=== PATIENT | female | born 1985 | race Caucasian/White ===

== ENCOUNTER 2021-12-27 20:46 | Emergency (ER) | payer OTHER, SELFPAY ==
[2021-12-27 21:00] VITALS: BP 147/75; PULSE 92; RESP 16; TEMP 36; O2SAT 99; BMI 44.5
[2021-12-27 22:18] VITALS: PULSE 79; O2SAT 100
[2021-12-27 22:19] VITALS: BP 127/70; PULSE 79; O2SAT 100
[2021-12-27 22:30] VITALS: PULSE 75; O2SAT 100
[2021-12-27 22:32] LABS: Add Manual Diff / Slide Review NO; Basophils Absolute Auto 100 /uL (0-100); Basophils Percent Auto 0.6 % (0-2); Eosinophils Absolute Auto 100 /uL (0-450); Eosinophils Percent Auto 1.7 % (2-4); Hematocrit 38.4 % (36-46); Hemoglobin 13.5 g/dL (12.0-16.0); Lymphocytes Absolute Auto 3400 /uL (1100-4500); Lymphocytes Percent Auto 39.4 % (25-40); Mean Corpuscular HGB Conc 35.2 % (30-36); Mean Corpuscular Hemoglobin 31.2 PG (26-34); Mean Corpuscular Volume 88.7 fL (80-100); Monocytes Absolute Auto 400 /uL (0-900); Monocytes Percent Auto 5.1 % (3-14); Neutrophils Absolute Auto 4600 /uL (1500-7000); Neutrophils Percent Auto 53.2 % (50-75); Platelet Count 217 X10^3/uL (150-400); Red Blood Cell Count 4.33 X10^6/uL (4.0-5.2); Red Cell Distribution Width 12.5 % (11.6-14.8); White Blood Cell Count 8.7 X10^3/uL (4.5-11.0)
--- NOTE | 2021-12-27 22:33 | PC.NURSE ---
pt states she just moved here from [place], her is on deployment. Pt has had history, states about 5 years long. she has on and off diarrhea and nausea. takes home medications (reglan and compazine regularly for nausea), diarrhea off and on and dizziness too/ she is here today because she saw a blood clot in the toilet and was concerned she has a GI bleed and also states she has had a huge increase in pain lately. states nothing makes her feel better and eating definitely makes it feel worse.
[2021-12-27 22:39] LABS: INR 0.9 (0.9-1.3); Prothrombin Time 10.8 SECONDS (10.1-12.7)
[2021-12-27 22:42] LABS: PTT Partial Thromboplastin Tim 33 SECONDS (26-36)
[2021-12-27 22:44] LABS: Alanine Aminotransferase 27 IU/L (<35); Albumin 4.2 g/dL (3.5-5.0); Albumin Globulin Ratio 1.4 (1.0-2.8); Alkaline Phosphatase 60 U/L (38-126); Aspartate Aminotransferase 20 IU/L (14-36); BUN Creatinine Ratio 19.3 (6-22); Bilirubin Total 0.5 mg/dL (0.2-1.3); Blood Urea Nitrogen 16 mg/dL (7-17); Calcium 8.9 mg/dL (8.4-10.2); Carbon Dioxide 27 mmol/L (22-32); Chloride 103 mmol/L (98-107); Estimated Glomerular Filt Rate > 60 mL/min (>60); Glucose 99 mg/dL (70-100); HEMOLYSIS < 15 (0-50); Sodium 140 mmol/L (137-145); Total Protein 7.2 g/dL (6.3-8.2)
--- NOTE | 2021-12-27 22:46 | ED_ITS ---
HPI - GI Bleed General Chief complaint: GI Bleed Stated complaint: diarrhea, painful urine Time Seen by Provider: 12/27/21 21:43 History of Present Illness HPI Narrative: 36-year-old female nonsmoker with prior GI history presents with her 2 children and a chief complaint of episodes of diarrhea off and on for the past few weeks. She feels a bit fatigued and under the weather but states that she has a long history of GI symptoms and was not concerned until she passed a blood clot in a bowel movement earlier today. She states there is intense pain with the passage of stool that improved when she was done. Additionally she states that she is been having burning, frequency and urgency over the past day or 2 as well. She denies any chest pain, shortness of breath or cough. She denies any ongoing abdominal pain. She takes no blood thinners. She denies recent antibiotics, in ternational travel or exposure to bad food or ill persons Related Data Allergies Allergy/AdvReac Type Severity Reaction Status Date / Time acetaminophen [From Percocet] Allergy Verified 12/27/21 21:04 diazepam [From Valium] Allergy Verified 12/27/21 21:04 morphine Allergy Verified 12/27/21 21:04 oxycodone Allergy Verified 12/27/21 21:04 Review of Systems Review of Systems Narrative: GENERAL: See HPI HEENT: Denies sinus pain, ear pain, sore throat, difficulty swallowing, dizziness. RESPIRATORY: Denies dyspnea, cough, wheezing, hemoptysis, sputum. CARDIOVASCULAR: Denies chest pain, palpitations, orthopnea, edema, GASTROINTESTINAL: See HPI : Denies dysuria, frequency, incontinence, hematuria, urinary retention. MUSCULOSKELETAL: denies weakness, joint pain, or bony pain SKIN: Denies rash, skin lesions, or other NEUROLOGIC: Denies weakness, headache, numbness, change in speech, confusion, seizures, incoordination. PSYCHIATRIC: No concerning psychosocial issues. 12 point review of systems is negative except for those stated above Exam Narrative Exam Narrative: GENERAL: 36 [] year old patient appears stated age. Well-developed patient, in mild distress. HEAD: Atraumatic. Normocephalic. EYES: Pupils equal round and reactive. Extraocular motions intact. No scleral icterus. No injection or drainage. ENT: Nose without bleeding, purulent drainage. Throat without erythema, tonsillar hypertrophy or exudate. Airway patent. NECK: Trachea midline. Non tender CARDIOVASCULAR: Regular rate and rhythm without murmurs, gallops, or rubs. RESPIRATORY: Clear to auscultation. Breath sounds equal bilaterally. No wheezes, rales, or rhonchi. GASTROINTESTINAL: Abdomen soft, non-tender, nondistended. Bowel sounds present in all 4 quadrants EXTREMITIES: No edema or joint tenderness. BACK: Nontender without deformity or crepitance. No flank tenderness. NEURO: AOx3. SKIN: No rash or erythema of visible areas Initial Vital Signs Initial Vital Signs: Vital Signs Temperature 96.8 F L 12/27/21 21:00 Pulse Rate 92 H 12/27/21 21:00 Respiratory Rate 16 12/27/21 21:00 Blood Pressure 147/75 H 12/27/21 21:00 Pulse Oximetry 99 12/27/21 21:00 Oxygen Delivery Method 12/27/21 21:00 Course Orders Ordered: ED Orders 12/27/21 21:42 GI Panel (Film Array) Stat 12/27/21 22:18 Complete Blood Count AUTO DIFF Stat Comprehensive Metabolic Panel Stat Partial Thromboplastin Time Stat Prothrombin Time INR Stat 12/28/21 00:15 Urine Culture Stat Urine Microscopic Stat Discontinued Medications Sodium Chloride (Normal Saline 0.9%) 1,000 mls @ 1,000 mls/hr IV BOLUS ONE Stop: 12/27/21 23:46 Last Infusion: 12/28/21 00:00 Dose: 0 mls/hr Documented By: Admin: 12/27/21 23:15 Dose: 1,000 mls/hr Documented By: NR Vital Signs Vital signs: Vital Signs - 8 hr 12/27/21 22:18 12/27/21 22:19 12/27/21 22:19 Pulse Rate 79 79 Blood Pressure 127/70 Pulse Oximetry 100 100 12/27/21 22:30 12/27/21 23:00 12/27/21 23:00 Pulse Rate 75 76 Blood Pressure 122/68 Pulse Oximetry 100 100 12/27/21 23:30 12/27/21 23:30 12/28/21 00:00 Pulse Rate 86 Blood Pressure 115/60 113/70 Pulse Oximetry 100 12/28/21 00:00 Pulse Rate 74 Blood Pressure Pulse Oximetry 100 MDM - GI Bleed Lab Data Result diagrams: 12/27/21 22:18 12/27/21 22:18 Labs: Lab Results 12/27/21 12/27/21 12/27/21 Range/Units 21:42 22:18 22:18 WBC 8.7 (4.5-11.0) X10^3/uL RBC 4.33 (4.0-5.2) X10^6/uL Hgb 13.5 (12.0-16.0) g/dL Hct 38.4 (36-46) % MCV 88.7 (80-100) fL MCH 31.2 (26-34) PG MCHC 35.2 (30-36) % RDW 12.5 (11.6-14.8) % Plt Count 217 (150-400) X10^3/uL Neut % (Auto) 53.2 (50-75) % Lymph % (Auto) 39.4 (25-40) % [place] % (Auto) 5.1 (3-14) % Eos % (Auto) 1.7 L (2-4) % Baso % (Auto) 0.6 (0-2) % Neut # (Auto) 4600 (1029-8350) /uL Lymph # (Auto) 3400 (8467-2582) /uL [place] # (Auto) 400 (0-900) /uL Eos # (Auto) 100 (0-450) /uL Baso # (Auto) 100 (0-100) /uL PT (10.1-12.7) SECONDS INR (0.9-1.3) APTT (26-36) SECONDS Sodium 140 (137-145) mmol/L Potassium 4.0 (3.4-5.1) mmol/L Chloride 103 (98-107) mmol/L Carbon Dioxide 27 (22-32) mmol/L BUN 16 (7-17) mg/dL Creatinine 0.83 (0.52-1.04) mg/dL Estimated GFR > 60 (>60) mL/min BUN/Creatinine Ratio 19.3 (6-22) Glucose 99 (70-100) mg/dL Calcium 8.9 (8.4-10.2) mg/dL Total Bilirubin 0.5 (0.2-1.3) mg/dL AST 20 (14-36) IU/L ALT 27 (<35) IU/L Alkaline Phosphatase 60 (38-126) U/L Total Protein 7.2 (6.3-8.2) g/dL Albumin 4.2 (3.5-5.0) g/dL Globulin 3.0 (1.7-4.1) g/dL Albumin/Globulin Ratio 1.4 (1.0-2.8) Urine RBC (0-5/HPF) Urine WBC (0-5/HPF) Ur Squamous Epith Cells (0-5/HPF) Urine Bacteria (None) Ur Culture Indicated? Micro UA Comment Stl C. cayetanensis PCR Not detected (Not Detect) Stool Rotavirus (PCR) Not detected (Not Detect) Stool Adenovirus (PCR) Not detected (Not Detect) Stool Astrovirus (PCR) Not detected (Not Detect) Stool Cryptosporidium PCR Not detected (Not Detect) Stl E.coli Shiga Tox PCR Not detected (Not Detect) St Sh/Enteroin Ecoli PCR Not detected (Not Detect) Stool E coli O157 PCR Not Reportable Stl Enterotoxigenic E PCR Not detected (Not Detect) Stool EPEC (PCR) Not detected (Not Detect) Stl E. histolytica PCR Not detected (Not Detect) Stool Giardia Lamblia PCR Not detected (Not Detect) Stool Sapovirus (PCR) Not detected (Not Detect) Stl P. shigelloides PCR Not detected (Not Detect) St Y.enterocolitica PCR Not detected (Not Detect) Stool Vibrio (PCR) Not detected (Not Detect) Stl Vibrio cholerae PCR Not detected (Not Detect) Stl Enteroaggr Ecoli PCR Not detected (Not Detect) Stl Norovirus GI/GII PCR Not detected (Not Detect) Campylobacter (PCR) Not detected (Not Detect) C. difficile Tox (PCR) Not detected (Not Detect) Salmonella (PCR) Not detected (Not Detect) 12/27/21 12/28/21 Range/Units 22:18 00:15 WBC (4.5-11.0) X10^3/uL RBC (4.0-5.2) X10^6/uL Hgb (12.0-16.0) g/dL Hct (36-46) % MCV (80-100) fL MCH (26-34) PG MCHC (30-36) % RDW (11.6-14.8) % Plt Count (150-400) X10^3/uL Neut % (Auto) (50-75) % Lymph % (Auto) (25-40) % [place] % (Auto) (3-14) % Eos % (Auto) (2-4) % Baso % (Auto) (0-2) % Neut # (Auto) (9726-9984) /uL Lymph # (Auto) (6897-1705) /uL [place] # (Auto) (0-900) /uL Eos # (Auto) (0-450) /uL Baso # (Auto) (0-100) /uL PT 10.8 (10.1-12.7) SECONDS INR 0.9 (0.9-1.3) APTT 33 (26-36) SECONDS Sodium (137-145) mmol/L Potassium (3.4-5.1) mmol/L Chloride (98-107) mmol/L Carbon Dioxide (22-32) mmol/L BUN (7-17) mg/dL Creatinine (0.52-1.04) mg/dL Estimated GFR (>60) mL/min BUN/Creatinine Ratio (6-22) Glucose (70-100) mg/dL Calcium (8.4-10.2) mg/dL Total Bilirubin (0.2-1.3) mg/dL AST (14-36) IU/L ALT (<35) IU/L Alkaline Phosphatase (38-126) U/L Total Protein (6.3-8.2) g/dL Albumin (3.5-5.0) g/dL Globulin (1.7-4.1) g/dL Albumin/Globulin Ratio (1.0-2.8) Urine RBC 1-5/hpf (0-5/HPF) Urine WBC 1-5/hpf (0-5/HPF) Ur Squamous Epith Cells 1-5 /hpf (0-5/HPF) Urine Bacteria Few (2-10) H (None) Ur Culture Indicated? Culture not indicate Micro UA Comment * Stl C. cayetanensis PCR (Not Detect) Stool Rotavirus (PCR) (Not Detect) Stool Adenovirus (PCR) (Not Detect) Stool Astrovirus (PCR) (Not Detect) Stool Cryptosporidium PCR (Not Detect) Stl E.coli Shiga Tox PCR (Not Detect) St Sh/Enteroin Ecoli PCR (Not Detect) Stool E coli O157 PCR Stl Enterotoxigenic E PCR (Not Detect) Stool EPEC (PCR) (Not Detect) Stl E. histolytica PCR (Not Detect) Stool Giardia Lamblia PCR (Not Detect) Stool Sapovirus (PCR) (Not Detect) Stl P. shigelloides PCR (Not Detect) St Y.enterocolitica PCR (Not Detect) Stool Vibrio (PCR) (Not Detect) Stl Vibrio cholerae PCR (Not Detect) Stl Enteroaggr Ecoli PCR (Not Detect) Stl Norovirus GI/GII PCR (Not Detect) Campylobacter (PCR) (Not Detect) C. difficile Tox (PCR) (Not Detect) Salmonella (PCR) (Not Detect) Point of Care Testing Test Results Negative Urine Dip Bedside Urine Glucose Negative Bedside Urine Bilirubin - Negative Bedside Urine Ketone - Negative Urine Specific [place] 1.025 Bedside Urine Occult Blood +++ Bedside Urine pH 6.0 Bedside Urine Protein - Negative Bedside Urine Urobilinogen - Negative Bedside Urine Nitrite - Negative Bedside Urine Leukocytes - Negative Esterase Discharge Plan Departure Patient Disposition: Home Clinical Impression: Diarrhea Instructions: Diarrhea Activity Restrictions/Additional Instructions: There is no evidence of an emergent or life threatening illness at this time, but follow up with your doctor in 1-2 days is recommended nonetheless to continue to rule out serious underlying causes of your symptoms. Please call the office for an appointment. Please return to the Emergency Department for any worsening or persistent symptoms. Please take medications as directed. Visit Report Forms: Patient Portal/API
[2021-12-27 23:00] VITALS: BP 122/68; PULSE 76; O2SAT 100
[2021-12-27 23:11] LABS: Campylobacter Not Detected (Not Detect)
[2021-12-27 23:12] LABS: Adenovirus F 40/41 Not Detected (Not Detect); Astrovirus Not Detected (Not Detect); Clostridium difficile toxin AB Not Detected (Not Detect); Cryptosporidium Not Detected (Not Detect); Cyclospora cayetanensis Not Detected (Not Detect); Entamoeba histolytica Not Detected (Not Detect); Enteroaggregative E.coli Not Detected (Not Detect); Enteropathogenic E.coli Not Detected (Not Detect); Enterotoxigenic E.coli It/st Not Detected (Not Detect); Giardia lamblia Not Detected (Not Detect); Norovirus GI/GII Not Detected (Not Detect); Plesiomonsa shigelloides Not Detected (Not Detect); Rotavirus A Not Detected (Not Detect); Salmonella Not Detected (Not Detect); Sapovirus Not Detected (Not Detect); Shiga-like toxin-prod E.coli Not Detected (Not Detect); Shigella/Enteroinvasive E.coli Not Detected (Not Detect); Vibrio Not Detected (Not Detect); Vibrio cholerae Not Detected (Not Detect); Yersinia enterocolitica Not Detected (Not Detect)
[2021-12-27] MEDS: ONDANSETRON 4 MG/2 ML INJ (23:14)
[2021-12-27] MEDS: SODIUM CHLORIDE 0.9% 1,000 ML 1000 ML IV (23:15)
[2021-12-27 23:30] VITALS: BP 115/60; PULSE 86; O2SAT 100
[2021-12-28] VITALS: BP 113/70; PULSE 74; O2SAT 100
[2021-12-28 00:28] LABS: Bacteria Urine Few (2-10); RBC Urine 1-5/HPF (0-5/HPF); Squamous Epithelial Cell Urine 1-5 /HPF (0-5/HPF); WBC Urine 1-5/HPF (0-5/HPF)
== END 2021-12-28 01:37 | disposition home or self-care (01) ==
PROVIDERS: Emergency Provider Emergency Medicine
DX: R19.7 Diarrhea, unspecified (principal)
CPT/HCPCS: 36415; 80053; 81003; 81015; 81025; 85025; 85610; 85730; 87086; 87507; 96360; 99284; J2405

== ENCOUNTER 2022-01-31 21:27 | Emergency (ER) | payer OTHER, SELFPAY ==
[2022-01-31 21:35] VITALS: BP 170/85; PULSE 99; RESP 19; TEMP 36.8; O2SAT 100; BMI 43.9
[2022-02-01 03:20] VITALS: BP 137/79; PULSE 113; RESP 20; O2SAT 98
--- NOTE | 2022-02-01 03:29 | ED_ITS ---
HPI - URI/Sore Throat General Chief Complaint: Upper Respiratory Symptoms Stated Complaint: throat pain, feels like swallowed glass Time Seen by Provider: 02/01/22 03:17 Source: patient Mode of arrival: Ambulatory History of Present Illness HPI Narrative: Patient complains of throat pain that started earlier today/Friday. Worsening overnight. Painful swallowing. [place] like she had a fever. Complains of right ear pain as well. History of strep throat in the past. Denies any sick contacts. Denies does not want a test Related Data Previous Rx's Medication Instructions Recorded amoxicillin 400 mg/5 mL oral 500 mg (6.25 mL) PO BID 10 days 02/01/22 suspension #125 mL Allergies Allergy/AdvReac Type Severity Reaction Status Date / Time acetaminophen [From Percocet] Allergy Verified 12/27/21 21:04 diazepam [From Valium] Allergy Verified 12/27/21 21:04 morphine Allergy Verified 12/27/21 21:04 oxycodone Allergy Verified 12/27/21 21:04 Review of Systems Review of Systems Narrative: GENERAL: Positive chills, fatigue, malaise, fever, sweats. HEENT: Denies sinus pain, positive ear pain, sore throat RESPIRATORY: Denies dyspnea, cough CARDIOVASCULAR: Denies chest pain, palpitations GASTROINTESTINAL: Denies nausea, vomiting, abdominal pain : Denies dysuria, frequency, hematuria MUSCULOSKELETAL: denies muscle or bony pain SKIN: Denies rash, skin lesions NEUROLOGIC: Denies weakness, numbness ROS Unobtainable: All systems reviewed & are unremarkable except as noted in HPI and below Patient History Social History Smoking Status: Never smoker Smoking Status: Never smoker Substance Use Type: does not use Exam Narrative Exam Narrative: GENERAL: in no distress, not toxic not dyspneic HEAD: Normocephalic. EYES: Pupils equal round No scleral icterus. ENT: Mucous membranes moist. There is symmetric bilateral erythema and mild edema. No exudates. Clear bilateral tympanic membranes, no canal edema or erythema or discharge. No tragus tenderness NECK: Trachea midline. Mild bilateral submandibular tenderness, CARDIOVASCULAR: Regular rate and rhythm without murmurs/tachycardia RESPIRATORY: Clear to auscultation. Breath sounds equal bilaterally. No wheezes, rales, or rhonchi. GASTROINTESTINAL: Abdomen soft, non-tender EXTREMITIES: No gross deformities. BACK: No flank tenderness. NEURO: AOx4. SKIN: Warm and dry PSYCH: Not anxious, is cooperative Initial Vital Signs Initial Vital Signs: Vital Signs Temperature 98.2 F 01/31/22 21:35 Pulse Rate 99 H 01/31/22 21:35 Respiratory Rate 19 01/31/22 21:35 Blood Pressure 170/85 H 01/31/22 21:35 Pulse Oximetry 100 01/31/22 21:35 Oxygen Delivery Method 01/31/22 21:35 Course Course Course Narrative: No new issues during course of stay Orders Ordered: ED Orders 02/01/22 02:45 Strep Grp A by PCR Rapid Stat Discontinued Medications Acetaminophen (Acetaminophen 325 Mg Tablet) 975 mg PO NOW ONE Stop: 02/01/22 03:29 Last Admin: 02/01/22 03:31 Dose: 975 mg Documented By: MILVIA Amoxicillin (Amoxicillin 250 Mg/5 Ml Prepack) 1 bottle [facility] Last Admin: 02/01/22 04:55 Dose: 1 bottle Documented By: MILVIA Reevaluation(s) Reevaluation #1: Spoke with patient results of strep screen and agrees to treat clinically for strep throat. Cultures may take a couple days. Return precautions reviewed with patient. She desires discharge home Time: 04:05 Vital Signs Vital signs: Vital Signs - 8 hr 02/01/22 03:20 02/01/22 04:59 Temperature 98.7 F Pulse Rate 113 H 99 H Respiratory Rate 20 16 Blood Pressure 137/79 130/75 Pulse Oximetry 98 98 Oxygen Delivery Method Room Air Room Air MDM - URI/Sore Throat Differential Diagnosis Differential diagnosis: Likely upper respiratory infection, otitis media, sinusitis, viral infection and pharyngitis Lab Data Labs: Lab Results 02/01/22 Range/Units 02:45 Group A Strep (PCR) Negative (Negative) MDM Narrative Medical decision making narrative: Appropriate for discharge home. Exam is reassuring as well as laboratory studies. Fever control and antibiotics have been started here in the department. Return precautions reviewed with patient and she desires discharge home will treat clinically for strep throat. Patient agrees with treatment plan. Will treat clinic for strep throat. No imaging indicated at this time, airway intact. No respiratory distress. bp improved at time of dc Discharge Plan Departure Patient Disposition: Home Clinical Impression: Pharyngitis Instructions: DI for Pharyngitis/Tonsillopharyngitis -- Adult Activity Restrictions/Additional Instructions: See family doctor next week for re-evaluation. Return if worse if any questions or concerns. Be sure to complete amoxicillin. See family doctor within a week for re-evaluation. Call provided primary care referral phone number to establish family doctor. Call [phone]. Keep well hydrated. May continue ibuprofen or Tylenol for throat pain. Prescriptions: New amoxicillin 400 mg/5 mL suspension for reconstitution 500 mg PO BID 10 Days Qty: 125 0RF Referrals: ProviderGabriel [Primary Care Provider] - Visit Report Forms: Patient Portal/API
[2022-02-01] MEDS: ACETAMINOPHEN 325 MG TABLET 975 MG PO (03:31)
[2022-02-01 03:39] LABS: Strep Grp A by PCR Rapid Negative (Negative)
[2022-02-01] MEDS: AMOXICILLIN 250 MG/5 ML PREPACK 1 BOTTLE MISC (04:55)
[2022-02-01 04:59] VITALS: BP 130/75; PULSE 99; RESP 16; TEMP 37.1; O2SAT 98
== END 2022-02-01 05:00 | disposition home or self-care (01) ==
PROVIDERS: Emergency Provider Emergency Medicine
DX: J02.9 Acute pharyngitis, unspecified (principal)
CPT/HCPCS: 87070; 87651; 99283

== ENCOUNTER 2022-07-10 09:33 | Emergency (ER) | payer OTHER, SELFPAY ==
[2022-07-10] VITALS (10 sets, daily range): BP systolic 92–149; BP diastolic 58–83; PULSE 74–99; RESP 15; TEMP 36.2; O2SAT 85–100; BMI 43.9
[2022-07-10] MEDS: KETOROLAC 30 MG/ML VIAL 15 MG IV (10:54)
[2022-07-10] MEDS: PROCHLORPERAZINE 10 MG/2 ML VIAL 5 MG IV (10:55)
[2022-07-10] MEDS: SODIUM CHLORIDE 0.9% 1,000 ML 1000 ML IV (10:56)
--- NOTE | 2022-07-10 11:04 | ED.HA ---
HPI - Headache General Chief Complaint: Headache Stated Complaint: severe migraine T-1 Time Seen by Provider: 07/10/22 10:12 Mode of arrival: Wheelchair History of Present Illness HPI Narrative: Patient brought here by for complaints of global generalized headache that started 10:00 a.m. yesterday. Patient has at least 3 headaches a week since her COVID immunization/vaccine 1 or [address] years ago[address] Has had CT scan imaging of [place] head [place]. This episode is different because she has numbness tingling and weakness of the left face and left arm. Primary care is with the [facility]. No recent illness. No cough cold congestion fever chills. No prior history of Arias's palsy or stroke. Last well known 10:00 a.m. yesterday. Related Data Allergies Allergy/AdvReac Type Severity Reaction Status Date / Time acetaminophen [From Percocet] Allergy Verified 07/10/22 09:43 diazepam [From Valium] Allergy Verified 07/10/22 09:43 morphine Allergy Verified 07/10/22 09:43 oxycodone Allergy Verified 07/10/22 09:43 Review of Systems Review of Systems Narrative: GENERAL: negative chills, fatigue, malaise, fever, sweats. HEENT: negative sinus pain, ear pain, sore throat RESPIRATORY: negative dyspnea, cough CARDIOVASCULAR: negative chest pain, palpitations GASTROINTESTINAL: negative nausea, vomiting, abdominal pain : negative dysuria, frequency, hematuria MUSCULOSKELETAL: negative muscle or bony pain SKIN: negative rash, skin lesions NEUROLOGIC: Positive headache and weakness, numbness ROS Unobtainable: All systems reviewed & are unremarkable except as noted in HPI and below Patient History Social History Smoking Status: Former smoker Smoking Status: Former smoker alcohol intake frequency: a few times a week Substance Use Type: does not use Exam Narrative Exam Narrative: GENERAL: in no distress, not toxic not dyspneic HEAD: Normocephalic. EYES: Pupils equal round PERRLA, EOMI, patient is sensitive to light with funduscopy. No papilledema. ENT: Mucous membranes moist. NECK: Trachea midline. CARDIOVASCULAR: Regular rate and rhythm without murmurs RESPIRATORY: Clear to auscultation. Breath sounds equal bilaterally. No wheezes, rales, or rhonchi. GASTROINTESTINAL: Abdomen soft, non-tender EXTREMITIES: No gross deformities. BACK: No flank tenderness. NEURO: AOx4. Patient has clear speech. There is slight left lip droop with puffing of the cheeks as well as attempting to smile. Also with grimacing with the eyebrows. There is difference in light touch on the upper and lower left face as well as entire arm and hands and fingers. Body Line Finisher is slightly weaker compared to the right. There are strong by loss straight leg raises and hip flexion and extension as well as with the knees. SKIN: Warm and dry PSYCH: Not anxious, is cooperative Initial Vital Signs Initial Vital Signs: Vital Signs Temperature 97.2 F L 07/10/22 09:38 Pulse Rate 85 07/10/22 09:38 Respiratory Rate 15 07/10/22 09:38 Blood Pressure 149/83 H 07/10/22 09:38 Pulse Oximetry 95 07/10/22 09:38 Oxygen Delivery Method Room Air 07/10/22 09:38 Scores NIH Stroke Scale Level of Conciousness: Alert, keenly responsive Ask month/age: Answers both questions correctly. Open/close eyes, close hand: Performs both tasks correctly Best gaze horizontal: Normal Visual nelson: No visual loss Facial palsy: Minor paralysis, flattened nasolabial fold, asymmetry on smiling Left arm drift: No drift for full 10 sec Right arm drift: No drift for full 10 sec Left leg drift: No drift for full 5 sec Right leg drift: No drift for full 5 sec Limb ataxia: Absent Sensory on face/arms/legs: Mild to moderate sensory loss, can tell touch Best language: No aphasia, normal Dysarthria: Normal Extinction or inattention: No abnormality Total NIH Stroke scale score: 2 Course Orders Ordered: Discontinued Medications Sodium Chloride (Normal Saline 0.9%) 1,000 mls @ 1,000 mls/hr IV BOLUS ONE Stop: 07/10/22 11:32 Last Infusion: 07/10/22 12:16 Dose: 0 mls/hr Documented By: Admin: 07/10/22 10:56 Dose: 1,000 mls/hr Documented By: ROMMEL Ketorolac Tromethamine (Ketorolac 30 Mg/Ml Vial) 15 mg IV NOW ONE Stop: 07/10/22 10:34 Last Admin: 07/10/22 10:54 Dose: 15 mg Documented By: MO Prochlorperazine (Prochlorperazine 10 Mg/2 Ml Vial) 5 mg IV NOW ONE Stop: 07/10/22 10:34 Last Admin: 07/10/22 10:55 Dose: 5 mg Documented By: ROMMEL Vital Signs Vital signs: Vital Signs - 8 hr 07/10/22 09:38 07/10/22 10:08 07/10/22 10:30 Temperature 97.2 F L Pulse Rate 85 80 79 Respiratory Rate 15 Blood Pressure 149/83 H Pulse Oximetry 95 99 99 Oxygen Delivery Method Room Air 07/10/22 10:57 07/10/22 10:57 07/10/22 11:00 Temperature Pulse Rate 74 Respiratory Rate Blood Pressure 121/58 L 124/72 Pulse Oximetry 98 Oxygen Delivery Method 07/10/22 11:00 07/10/22 11:30 07/10/22 11:31 Temperature Pulse Rate 82 76 84 Respiratory Rate Blood Pressure Pulse Oximetry 100 98 98 Oxygen Delivery Method Room Air 07/10/22 11:31 07/10/22 12:00 07/10/22 12:01 Temperature Pulse Rate 78 78 Respiratory Rate Blood Pressure 119/66 Pulse Oximetry 99 99 Oxygen Delivery Method 07/10/22 12:01 07/10/22 13:32 Temperature Pulse Rate 99 H Respiratory Rate Blood Pressure 92/61 108/58 L Pulse Oximetry 85 L Oxygen Delivery Method Room Air MDM - Headache Lab Data 07/10/22 10:05 07/10/22 10:05 Labs: Lab Results 07/10/22 07/10/22 07/10/22 Range/Units 10:05 10:05 10:05 WBC 6.6 (4.5-11.0) X10^3/uL RBC 4.50 (4.0-5.2) X10^6/uL Hgb 13.3 (12.0-16.0) g/dL Hct 39.3 (36-46) % MCV 87.4 (80-100) fL MCH 29.7 (26-34) PG MCHC 34.0 (30-36) % RDW 13.6 (11.6-14.8) % Plt Count 185 (150-400) X10^3/uL Neut % (Auto) 57.0 (50-75) % Lymph % (Auto) 36.1 (25-40) % [place] % (Auto) 4.9 (3-14) % Eos % (Auto) 1.7 L (2-4) % Baso % (Auto) 0.3 (0-2) % Neut # (Auto) 3800 (8786-1100) /uL Lymph # (Auto) 2400 (5526-9689) /uL [place] # (Auto) 300 (0-900) /uL Eos # (Auto) 100 (0-450) /uL Baso # (Auto) 0 (0-100) /uL PT 12.5 (10.1-12.7) SECONDS INR 1.1 (0.9-1.3) APTT 33 (26-36) SECONDS Sodium 139 (137-145) mmol/L Potassium 4.3 (3.4-5.1) mmol/L Chloride 104 (98-107) mmol/L Carbon Dioxide 27 (22-32) mmol/L BUN 15 (7-17) mg/dL Creatinine 0.77 (0.52-1.04) mg/dL Estimated GFR > 60 (>60) mL/min BUN/Creatinine Ratio 19.5 (6-22) Glucose 121 H (70-100) mg/dL Calcium 9.1 (8.4-10.2) mg/dL Total Bilirubin 0.6 (0.2-1.3) mg/dL AST 22 (14-36) IU/L ALT 24 (<35) IU/L Alkaline Phosphatase 46 (38-126) U/L Total Creatine Kinase 48 (30-135) U/L CK-MB (CK-2) TNP CK-MB (CK-2) Rel Index TNP Troponin I < 0.012 (0.01-0.034) ng/mL Total Protein 7.1 (6.3-8.2) g/dL Albumin 4.2 (3.5-5.0) g/dL Globulin 2.9 (1.7-4.1) g/dL Albumin/Globulin Ratio 1.4 (1.0-2.8) Serum , Qual (Negative) 07/10/22 Range/Units 10:05 WBC (4.5-11.0) X10^3/uL RBC (4.0-5.2) X10^6/uL Hgb (12.0-16.0) g/dL Hct (36-46) % MCV (80-100) fL MCH (26-34) PG MCHC (30-36) % RDW (11.6-14.8) % Plt Count (150-400) X10^3/uL Neut % (Auto) (50-75) % Lymph % (Auto) (25-40) % [place] % (Auto) (3-14) % Eos % (Auto) (2-4) % Baso % (Auto) (0-2) % Neut # (Auto) (0022-2516) /uL Lymph # (Auto) (0178-1930) /uL [place] # (Auto) (0-900) /uL Eos # (Auto) (0-450) /uL Baso # (Auto) (0-100) /uL PT (10.1-12.7) SECONDS INR (0.9-1.3) APTT (26-36) SECONDS Sodium (137-145) mmol/L Potassium (3.4-5.1) mmol/L Chloride (98-107) mmol/L Carbon Dioxide (22-32) mmol/L BUN (7-17) mg/dL Creatinine (0.52-1.04) mg/dL Estimated GFR (>60) mL/min BUN/Creatinine Ratio (6-22) Glucose (70-100) mg/dL Calcium (8.4-10.2) mg/dL Total Bilirubin (0.2-1.3) mg/dL AST (14-36) IU/L ALT (<35) IU/L Alkaline Phosphatase (38-126) U/L Total Creatine Kinase (30-135) U/L CK-MB (CK-2) CK-MB (CK-2) Rel Index Troponin I (0.01-0.034) ng/mL Total Protein (6.3-8.2) g/dL Albumin (3.5-5.0) g/dL Globulin (1.7-4.1) g/dL Albumin/Globulin Ratio (1.0-2.8) Serum , Qual Negative (Negative) Point of Care Testing Test Results Negative Urine Dip Bedside Urine Glucose Negative Bedside Urine Bilirubin - Negative Bedside Urine Ketone - Negative Urine Specific [place] 1.010 Bedside Urine Occult Blood - Negative Bedside Urine pH 7.5 Bedside Urine Protein - Negative Bedside Urine Urobilinogen - Negative Bedside Urine Nitrite - Negative Bedside Urine Leukocytes - Negative Esterase Imaging Data CTA - brain/neck: Radiologist's Impression: PROCEDURE: CT ANGIO HEAD AND NECK INDICATIONS: headache/left face numb TECHNIQUE: Pre-contrast 4.5 mm thick sections acquired from the foramen magnum to the vertex. After the administration of intravenous contrast, 1 mm thick sections acquired from the aortic arch through the [place] of [place]. Post-contrast 4.5 mm thick sections then re-acquired from the foramen magnum to the vertex. 3-dimensional [id number]-[id number] (MIP) and/or volume rendering reformats were acquired of the central intracranial vasculature and neck separately. For radiation dose reduction, the following was used: automated exposure control, adjustment of mA and/or kV according to patient size. COMPARISON: None. FINDINGS: Image quality: Excellent. BRAIN: CSF spaces: Ventricles are normal in size and shape. Basal cisterns are patent. No extra-axial fluid collections. Brain: No midline shift. No intracranial bleeds or masses. Asencio-white matter interface appears intact. Skull and face: Calvarium and facial bones appear intact, without suspicious lesions. Orbits appear normal. Sinuses: Sinuses and mastoids are clear. HEAD CT ANGIOGRAPHY: Anterior circulation: Intracranial internal carotid arteries are normal in size and flow. The flow within the paired anterior cerebral arteries is normal and symmetric. The flow within the middle cerebral arteries is normal and symmetric. The anterior communicating artery is seen. No aneurysms are seen. Posterior circulation: Visualized portions of the vertebral arteries demonstrate normal caliber, and join to form a normal appearing basilar artery. Flow within the posterior cerebral arteries is normal and symmetric. No aneurysms are seen. NECK CT ANGIOGRAPHY: Carotid system: The great vessels demonstrate a conventional anatomy as they arise from the aortic arch. The origins of the common carotid arteries appear patent. The common carotid arteries demonstrate normal caliber and courses. The bifurcation regions are both widely patent. The internal carotid arteries demonstrate normal calibers and courses. Posterior circulation: The origins of the vertebral arteries both appear widely patent. The more superior extracranial portions of both vertebral arteries also demonstrate normal courses and calibers. They join to form a normal appearing basilar artery. Soft tissues: Visualized neck soft tissues demonstrate no suspicious abnormalities. Bones: No suspicious bony lesions. Visualized cervical spine appears normally aligned. IMPRESSION: 1. No evidence acute intracranial process. 2. Unremarkable CTA head. No stenosis, aneurysm, occlusion, or focal filling defect. 3. Patent carotids. Any quantitative measurements of stenosis were performed using NASCET criteria. Dictated by: Clayton Reilly M.D. on 07/10/2022 at 12:52 Approved by: Clayton Reilly M.D. on 07/10/2022 at 12:55 [facility] Narrative Medical decision making narrative: After history and exam CT angiogram head and neck ordered normal saline, Toradol, Compazine, CBC CMP, EKG [facility] CC: Headache with left facial and left arm numbness and weakness Complicating co-morbidities: Chronic migraines Data collected from: Patient and Medical records reviewed: No recent visits for this complaint Differential considered: Includes but not limited to stroke TIA complex migraine Exam documented above, pertinent findings include: Left lip droop numbness to the face and left arm Lab Test results independently reviewed as above. Pertinent findings: No leukocytosis, troponin less than 0.012 Independently reviewed EKG as above normal sinus rhythm rate [address] elevation or depression Imaging studies independently reviewed: CT angiogram head and neck no acute process Consultations: None indicated Treatments: Toradol normal saline Compazine Re-evaluations: 2:00 p.m.. Patient feeling much better. Headache has resolved. No left face numbness tingling weakness as well as the left arm. Patient feels much better and desires discharge home. I did review results with patient and . He is driving. She states in [place] she was getting Botox injections for her migraines. She needs referral for primary care now. Discussion: Appropriate for discharge home. Exam and laboratory studies imaging EKG reassuring. Patient symptoms resolved with conservative treatment. Neurological findings likely complex migraine headache. This is not new for patient. Return precautions reviewed patient. Patient and family desire discharge home. Primary care referral given. Nontoxic at discharge. Likely not stroke. Diagnosis: Migraine headache Discharge Plan Departure Patient Disposition: Home Clinical Impression: Headache, migraine Instructions: DI for Migraine Activity Restrictions/Additional Instructions: No driving operating machinery today. Please do call your family doctor this week for referral to Neurology services. Call provided primary care referral phone number to establish family doctor. Call [phone] return if worse if any questions or concerns. Today's laboratory studies and imaging are reassuring. I am glad to hear that you are doing much better. Referrals: Provider,Gabriel SENIOR [Primary Care Provider] - Stand Alone Forms: Patient Portal/API, Work Release Note
[2022-07-10 11:08] LABS: Add Manual Diff / Slide Review NO; Basophils Absolute Auto 0 /uL (0-100); Basophils Percent Auto 0.3 % (0-2); Eosinophils Absolute Auto 100 /uL (0-450); Eosinophils Percent Auto 1.7 % (2-4); Hematocrit 39.3 % (36-46); Hemoglobin 13.3 g/dL (12.0-16.0); Lymphocytes Absolute Auto 2400 /uL (1100-4500); Lymphocytes Percent Auto 36.1 % (25-40); Mean Corpuscular Hemoglobin 29.7 PG (26-34); Mean Corpuscular Volume 87.4 fL (80-100); Monocytes Absolute Auto 300 /uL (0-900); Monocytes Percent Auto 4.9 % (3-14); Neutrophils Absolute Auto 3800 /uL (1500-7000); Platelet Count 185 X10^3/uL (150-400); Red Cell Distribution Width 13.6 % (11.6-14.8); White Blood Cell Count 6.6 X10^3/uL (4.5-11.0)
[2022-07-10 11:10] LABS: INR 1.1 (0.9-1.3); Prothrombin Time 12.5 SECONDS (10.1-12.7)
[2022-07-10 11:13] LABS: PTT Partial Thromboplastin Tim 33 SECONDS (26-36)
[2022-07-10 11:20] LABS: Alanine Aminotransferase 24 IU/L (<35); Albumin 4.2 g/dL (3.5-5.0); Albumin Globulin Ratio 1.4 (1.0-2.8); Alkaline Phosphatase 46 U/L (38-126); Aspartate Aminotransferase 22 IU/L (14-36); BUN Creatinine Ratio 19.5 (6-22); Bilirubin Total 0.6 mg/dL (0.2-1.3); Blood Urea Nitrogen 15 mg/dL (7-17); Calcium 9.1 mg/dL (8.4-10.2); Carbon Dioxide 27 mmol/L (22-32); Chloride 104 mmol/L (98-107); Creatine Kinase 48 U/L (30-135); Estimated Glomerular Filt Rate > 60 mL/min (>60); Globulin 2.9 g/dL (1.7-4.1); Glucose 121 mg/dL (70-100); HEMOLYSIS < 15 (0-50); Potassium 4.3 mmol/L (3.4-5.1); Sodium 139 mmol/L (137-145); Total Protein 7.1 g/dL (6.3-8.2)
[2022-07-10 11:21] LABS: Pregnancy Test Serum,Qual Negative (Negative)
[2022-07-10 11:31] LABS: Troponin I < 0.012 ng/mL (0.01-0.034)
== END 2022-07-10 14:14 | disposition home or self-care (01) ==
PROVIDERS: Emergency Provider Emergency Medicine
DX: G43.109 Migraine with aura, not intractable, without status migrainosus (principal); R20.2 Paresthesia of skin; R29.810 Facial weakness; R29.702 NIHSS score 2
CPT/HCPCS: 36415; 70496; 70498; 80053; 81003; 81025; 82550; 84484; 84703; 85025; 85610; 85730; 93005; 93010; 96361; 96374; 96375; 99284; J0780; J1885

== ENCOUNTER → 2023-03-04 09:31 | Outpatient (CLI) | payer MEDICARE, OTHER, SELFPAY ==
[2023-03-04 11:22] LABS: TSH w/ Reflex to FT4 1.61 uIU/mL (0.47-4.68)
[2023-03-04 11:48] LABS: Adenovirus F 40/41 Not Detected (Not Detect); Astrovirus Not Detected (Not Detect); Campylobacter Not Detected (Not Detect); Clostridium difficile toxin AB Not Detected (Not Detect); Cryptosporidium Not Detected (Not Detect); Cyclospora cayetanensis Not Detected (Not Detect); Entamoeba histolytica Not Detected (Not Detect); Enteroaggregative E.coli Not Detected (Not Detect); Enteropathogenic E.coli Not Detected (Not Detect); Enterotoxigenic E.coli It/st Not Detected (Not Detect); Giardia lamblia Not Detected (Not Detect); Norovirus GI/GII Not Detected (Not Detect); Plesiomonsa shigelloides Not Detected (Not Detect); Rotavirus A Not Detected (Not Detect); Salmonella Not Detected (Not Detect); Sapovirus Not Detected (Not Detect); Shiga-like toxin-prod E.coli Not Detected (Not Detect); Shigella/Enteroinvasive E.coli Not Detected (Not Detect); Vibrio Not Detected (Not Detect); Vibrio cholerae Not Detected (Not Detect); Yersinia enterocolitica Not Detected (Not Detect)
[2023-03-07 19:18] LABS: Calprotectin, Stool 7 ug/g (0-120)
== END ==
PROVIDERS: Referring Provider Physician Assistant; Visit Provider Physician Assistant
DX: R19.7 Diarrhea, unspecified (principal); E08.43 Diabetes mellitus due to underlying condition with diabetic autonomic (poly)neuropathy
CPT/HCPCS: 36415; 83993; 84443; 87507

== ENCOUNTER 2024-04-09 20:01 | Emergency (ER) | payer MEDICARE, OTHER, SELFPAY ==
[2024-04-09 20:03] VITALS: BP 129/73; PULSE 83; RESP 20; TEMP 36.7; O2SAT 98; BMI 38.0
--- NOTE | 2024-04-09 21:29 | ED_ITS ---
HPI - Female Genitourinary General Chief complaint: Abdominal Pain Stated complaint: pale dizzy nauseous Time Seen by Provider: 04/09/24 20:14 Source: patient Mode of arrival: Family Vehicle History of Present Illness HPI Narrative: 39-year-old female presents for 1 day of heavy menstrual cycle with significant heavy bleeding and pelvic pain. States that she has fairly regular periods but this 1 is much worse than usual. She is going through multiple tampons every hour. Taking pamprin for pain without significant relief. Feeling cold, nauseous, and dizzy. Denies any possibility of Related Data Home Medications Medication Instructions Recorded Confirmed albuterol sulfate 90 mcg/actuation 2 puff inhalation Q6H PRN 09/22/23 aerosol inhaler amitriptyline 25 mg tablet 25 mg PO BEDTIME 09/22/23 divalproex 500 mg tablet,delayed 500 mg PO BID 09/22/23 release pantoprazole 40 mg tablet,delayed 40 mg PO DAILY 09/22/23 release prednisone 20 mg tablet 40 mg PO DAILY 09/22/23 Allergies Allergy/AdvReac Type Severity Reaction Status Date / Time acetaminophen [From Percocet] Allergy Verified 09/22/23 07:44 diazepam [From Valium] Allergy Verified 09/22/23 07:44 morphine Allergy Verified 09/22/23 07:44 oxycodone Allergy Verified 09/22/23 07:44 ibuprofen AdvReac Mild Rash Verified 09/22/23 07:44 Exam Initial Vital Signs Initial Vital Signs: Vital Signs Temperature 98.1 F 04/09/24 20:03 Pulse Rate 83 04/09/24 20:03 Respiratory Rate 20 04/09/24 20:03 Blood Pressure 129/73 04/09/24 20:03 Pulse Oximetry 98 04/09/24 20:03 Oxygen Delivery Method Room Air 04/09/24 20:03 Const: Awake, alert, no acute distress, nontoxic appearing Cardiac: regular rate, regular rhythm RESP: unlabored, clear bilaterally, no wheezing GI: Soft, generalized lower abdominal tenderness to deep palpation without rebound or guarding Skin: Warm, Dry, intact, no rashes Neuro: AO x3, CN II-XII grossly intact, moves all extremities Course Orders Ordered: ED Orders 04/09/24 21:20 CBC Auto Diff [Complete Blood Count AUTO DIFF] Stat CMP [Comprehensive Metabolic Panel] Stat 04/09/24 21:28 US pelvic complete Stat 04/09/24 23:09 CT kidney ureter bladder (KUB) Stat 04/09/24 23:33 UA Complete [Urinalysis and Microscopic] Stat Urine Culture Stat Discontinued Medications Ketorolac Tromethamine (Ketorolac 30 Mg/Ml Vial) 15 mg IV NOW ONE Stop: 04/09/24 21:29 Last Admin: 04/09/24 21:37 Dose: 15 mg Documented By: ES Vital Signs Vital signs: Vital Signs - 8 hr 04/09/24 20:03 04/09/24 22:50 04/09/24 22:51 Temperature 98.1 F Pulse Rate 83 Respiratory Rate 20 Blood Pressure 129/73 110/57 L Pulse Oximetry 98 100 Oxygen Delivery Method Room Air 04/09/24 22:51 04/09/24 22:56 04/09/24 23:00 Temperature Pulse Rate 68 68 66 Respiratory Rate 16 Blood Pressure 110/57 L Pulse Oximetry 100 100 100 Oxygen Delivery Method Room Air 04/10/24 00:00 04/10/24 00:00 Temperature Pulse Rate 71 Respiratory Rate Blood Pressure 114/78 Pulse Oximetry 100 Oxygen Delivery Method MDM - Female Genitourinary Lab Data 04/09/24 21:20 04/09/24 21:20 Labs: Lab Results 04/09/24 04/09/24 Range/Units 21:20 23:33 WBC 7.8 (4.5-11.0) X10^3/uL RBC 4.13 (4.0-5.2) X10^6/uL Hgb 11.8 L (12.0-16.0) g/dL Hct 35.2 L (36-46) % MCV 85.2 (80-100) fL MCH 28.6 (26-34) PG MCHC 33.6 (30-36) % RDW 13.8 (11.6-14.8) % Plt Count 250 (150-400) X10^3/uL Neut % (Auto) 55.0 (50-75) % Lymph % (Auto) 35.6 (25-40) % Vance % (Auto) 6.0 (3-14) % Eos % (Auto) 3.1 (2-4) % Baso % (Auto) 0.3 (0-2) % Neut # (Auto) 4300 (0006-4556) /uL Lymph # (Auto) 2800 (1805-5774) /uL Vance # (Auto) 500 (0-900) /uL Eos # (Auto) 200 (0-450) /uL Baso # (Auto) 0 (0-100) /uL Sodium 135 L (137-145) mmol/L Potassium 3.7 (3.4-5.1) mmol/L Chloride 105 (98-107) mmol/L Carbon Dioxide 26 (22-32) mmol/L BUN 13 (7-17) mg/dL Creatinine 0.88 (0.52-1.04) mg/dL Estimated GFR > 60 (>60) mL/min BUN/Creatinine Ratio 14.8 (6-22) Glucose 96 (70-100) mg/dL Calcium 8.9 (8.4-10.2) mg/dL Total Bilirubin 0.5 (0.2-1.3) mg/dL AST 30 (14-36) IU/L ALT 36 H (<35) IU/L Alkaline Phosphatase 75 (38-126) U/L Total Protein 7.1 (6.3-8.2) g/dL Albumin 4.2 (3.5-5.0) g/dL Globulin 2.9 (1.7-4.1) g/dL Albumin/Globulin Ratio 1.4 (1.0-2.8) Urine Color Red Urine Appearance Cloudy Urine pH 7.0 (4.5-8.0) Ur Specific [place] 1.020 (1.000-1.035) Urine Protein 3+ H (Negative) Urine Glucose (UA) Negative (Negative) g/dL Urine Ketones Trace H (NEGATIVE) Urine Occult Blood 3+ H (Negative) Urine Nitrate Positive H (Negative) Urine Bilirubin Negative (NEGATIVE) Urine Urobilinogen 2.0 H (0.2) E.U./dL Ur Leukocyte Esterase 1+ H (NEGATIVE) Urine RBC 30-100/hpf H (0-5/HPF) Urine WBC 0-1/hpf (0-5/HPF) Ur Squamous Epith Cells 0-1 /hpf (0-5/HPF) Urine Bacteria Few (2-10) H (None) Ur Culture Indicated? Specimen cultured Vol Urine Centrifuged 10ml (spun) Imaging Data US - [employer] OPERATOR: Radiologist's Impression: PROCEDURE: US PELVIC COMPLETE INDICATIONS: HEAVY ABNORMAL UTERINE BLEEDING TECHNIQUE: Real-time scanning was performed of the pelvic organs, with image documentation. Additional endovaginal scanning was necessary due to incomplete visualization of the adnexal and endometrial structures by transabdominal scanning. COMPARISON: None. FINDINGS: Uterus: Uterus is anteverted and normal in size at 8.6 x 5.0 x 4.6 cm. The myometrium is heterogeneous. The endometrium measures 7 mm combined thickness. Suggestion of mild increased vascularity of the endometrium. No focal abnormalities identified. Ovaries: The right ovary measures 4.0 x 3.1 x 2.4 cm, with a calculated ovarian volume of 15.3 cc. The left ovary measures 2.5 x 1.4 x 1.2 cm, with a calculated ovarian volume of 2.1 cc. There is a possible solid/cystic nonvascular focus within the right ovary measuring 2.1 x 1.9 x 1.8 cm. The left ovary as a normal sonographic appearance. Less than 12 follicles can be seen in each ovary. Vascular waveforms are noted in the bilateral ovaries. Other: No pathologic free abdominal or pelvic fluid. Mild hepatomegaly and hepatic steatosis. Suggestion of mild dilatation of the distal right ureter with echogenic focus measuring 0.5 x 0.4 cm in size. Distal ureter measures approximately 5 mm in diameter. More proximal distal segments of the right ureter are not well visualized secondary to adjacent bowel gas and into the urinary bladder. IMPRESSION: 1. No evidence for ovarian torsion. 2. Possible 2.1 cm solid/cystic nonvascular focus within the right ovary. Recommend follow-up pelvic ultrasound in 6-12 weeks to document stability versus resolution. 3. Possible nonobstructing 5 mm distal right ureteral stone. No right hydronephrosis. 4. Mildly hyperemic appearance of the non thickened endometrium is nonspecific. Early endometritis not excluded. Recommend clinical correlation. We strive to produce accurate, complete, and clear reports of imaging services. To assist us in improving patient care, this report was composed using standard report templates and voice recognition software. Therefore, it may contain abnormal punctuation, insertions and/or omissions. Occasional wrong-word or sound-alike substitutions may occur. Though we review the report and make efforts to correct it, we do recommend that the report be read carefully in proper context to recognize any text inaccuracies. Dictated by: Flakito Ferraro M.D. on 04/09/2024 at 22:49 Approved by: Flakito Ferraro M.D. on 04/09/2024 at 22:55 CT scan - abdomen/pelvis: Radiologist's Impression: PROCEDURE: CT KIDNEY URETER BLADDER (KUB) INDICATIONS: PELVIC PAIN, POSS STONE SEEN ON US TECHNIQUE: Axial sections were acquired from the lung bases to the pubic symphysis. Coronal and sagittal reformats were performed. For radiation dose reduction, the following was used: automated exposure control, adjustment of mA and/or kV according to patient size. COMPARISON: [facility], US, US PELVIC COMPLETE, 04/09/2024, 21:52. FINDINGS: Image quality: Diagnostic. Lower Chest: Bibasilar atelectasis. Heart size is normal. URINARY: Right Kidney: No stones or hydronephrosis. Right Ureter: No hydroureter. No ureteral stones seen. There are a few punctate pelvic stones identified which may correlate with ultrasound findings. Left Kidney: No stones or hydronephrosis. Left Ureter: No hydroureter. Bladder: Normal wall thickness. No stones. ABDOMEN: Liver: No contour-deforming solid mass. Gallbladder: No radiopaque gallstones or wall thickening. Biliary ducts: No biliary dilation. Pancreas: No ductal dilation. Spleen: Size is within normal limits. Adrenal Glands: No adrenal nodules. Stomach and Bowel: Normal colonic caliber, without significant wall thickening. Scattered colonic diverticula without acute inflammation. Postsurgical changes of prior appendectomy. No evidence for small bowel obstruction or associated inflammatory changes. Peritoneum: No abnormal intraperitoneal fluid. No free air. Ventral Wall: There is a fat-containing umbilical hernia without acute inflammation. Abdominal Nodes: No enlarged retroperitoneal or mesenteric lymph nodes. Vessels: Aorta and inferior vena cava are normal in size. PELVIS: Pelvic Organs: Unremarkable. Pelvic structures better visualized on pelvic ultrasound from same day. Pelvic Nodes: Unremarkable. Miscellaneous: No inguinal hernias are seen. Bones: Unremarkable. Visualized osseous structures appear intact without acute fracture or focal destructive lesion. No acute compression fractures of the imaged spine. IMPRESSION: CT abdomen and pelvis without acute abnormalities. Specifically, no evidence for urolithiasis or obstructive uropathy. The previously described possible distal right ureteral stone may correlate with a pelvic calcification or phlebolith. Colonic diverticulosis without acute diverticulitis. Status post appendectomy. Dictated by: Flakito Ferraro M.D. on 04/09/2024 at 23:29 Approved by: Flakito Ferraro M.D. on 04/09/2024 at 23:35 MDM Narrative Medical decision making narrative: Heavy uterine bleeding and other associated symptoms. Exam fairly unremarkable, patient has tenderness along her lower abdomen without rebound or guarding. Laboratory work, pelvic ultrasound ordered for assessment. Laboratory work shows no significant abnormalities. Hemoglobin 11.8, electrolytes normal. Ultrasound shows small right-sided cyst, possible ureteral stone, notes possible hyperemia, no other acute findings. With possible stone finding CT ordered for assessment. Pain improved with toradol CT negative for acute findings. Previously described possible ureteral stone appears more consistent with pelvic calcification versus phlebolith on CT scan. Case discussed with Dr. Peng of OBGYN, who stated that patient has no known risk factors for endometritis and this is much more likely to be abnormal uterine bleeding. Patient should f/u with OBGYN for further monitoring. All lab and imaging findings discussed with the patient and her partner at bedside. Recommended ibuprofen, Tylenol as needed for pain at home. As well as close OBGYN follow up. ED return precautions discussed at bedside. Patient expressed understanding of the plan and is in agreement at this time. All questions answered at the time of discharge. Discharge Plan Departure Patient Disposition: Home Clinical Impression: Abnormal uterine bleeding Instructions: DI for Abnormal Uterine Bleeding Activity Restrictions/Additional Instructions: Your laboratory work today is overall normal. Your hemoglobin is similar to previous values and you do not need a transfusion at this time. Your ultrasound a small cyst on your right ovary without significant concerning findings. They do recommend following up with an ultrasound in 6-12 weeks, this can be done with your OBGYN. This is unlikely to be related to your symptoms today. Your CT did not show any kidney stones. Take Tylenol and ibuprofen at home as needed for discomfort. If you have upset stomach with ibuprofen you may take it with an antacid or with food to help decrease stomach upset. Anti-inflammatories are best for pelvic pain. Follow up with OBGYN. If you continued to have abnormal cycles such as this you may need to be on control, however this is best discussed with your OBGYN or primary care doctor. Prescriptions: No Action albuterol sulfate 90 mcg/actuation HFA aerosol inhaler 2 puff inhalation Q6H PRN amitriptyline 25 mg tablet 25 mg PO BEDTIME divalproex 500 mg tablet,delayed release (DR/EC) 500 mg PO BID pantoprazole 40 mg tablet,delayed release (DR/EC) 40 mg PO DAILY prednisone 20 mg tablet 40 mg PO DAILY Referrals: Yana Peng MD [Physician] - Provider,Gabriel SENIOR [Primary Care Provider] - Stand Alone Forms: Patient Portal/API/Survey
[2024-04-09 21:30] LABS: Add Manual Diff / Slide Review NO; Basophils Absolute Auto 0 /uL (0-100); Basophils Percent Auto 0.3 % (0-2); Eosinophils Absolute Auto 200 /uL (0-450); Eosinophils Percent Auto 3.1 % (2-4); Hematocrit 35.2 % (36-46); Hemoglobin 11.8 g/dL (12.0-16.0); Lymphocytes Absolute Auto 2800 /uL (1100-4500); Lymphocytes Percent Auto 35.6 % (25-40); Mean Corpuscular HGB Conc 33.6 % (30-36); Mean Corpuscular Hemoglobin 28.6 PG (26-34); Mean Corpuscular Volume 85.2 fL (80-100); Monocytes Absolute Auto 500 /uL (0-900); Neutrophils Absolute Auto 4300 /uL (1500-7000); Platelet Count 250 X10^3/uL (150-400); Red Blood Cell Count 4.13 X10^6/uL (4.0-5.2); Red Cell Distribution Width 13.8 % (11.6-14.8); White Blood Cell Count 7.8 X10^3/uL (4.5-11.0)
[2024-04-09] MEDS: KETOROLAC 30 MG/ML VIAL 15 MG IV (21:37)
[2024-04-09 21:41] LABS: Alanine Aminotransferase 36 IU/L (<35); Albumin 4.2 g/dL (3.5-5.0); Albumin Globulin Ratio 1.4 (1.0-2.8); Alkaline Phosphatase 75 U/L (38-126); Aspartate Aminotransferase 30 IU/L (14-36); BUN Creatinine Ratio 14.8 (6-22); Bilirubin Total 0.5 mg/dL (0.2-1.3); Blood Urea Nitrogen 13 mg/dL (7-17); Calcium 8.9 mg/dL (8.4-10.2); Carbon Dioxide 26 mmol/L (22-32); Chloride 105 mmol/L (98-107); Estimated Glomerular Filt Rate > 60 mL/min (>60); Globulin 2.9 g/dL (1.7-4.1); Glucose 96 mg/dL (70-100); HEMOLYSIS < 15 (0-50); Potassium 3.7 mmol/L (3.4-5.1); Sodium 135 mmol/L (137-145); Total Protein 7.1 g/dL (6.3-8.2)
[2024-04-09 22:50] VITALS: O2SAT 100
[2024-04-09 22:51] VITALS: BP 110/57; PULSE 68; O2SAT 100
[2024-04-09 22:56] VITALS: BP 110/57; PULSE 68; RESP 16; O2SAT 100
[2024-04-09 23:00] VITALS: PULSE 66; O2SAT 100
--- NOTE | 2024-04-09 23:09 | DI.CT.S_ITS ---
PROCEDURE: CT KIDNEY URETER BLADDER (KUB) INDICATIONS: PELVIC PAIN, POSS STONE SEEN ON US TECHNIQUE: Axial sections were acquired from the lung bases to the pubic symphysis. Coronal and sagittal reformats were performed. For radiation dose reduction, the following was used: automated exposure control, adjustment of mA and/or kV according to patient size. COMPARISON: [facility], US, US PELVIC COMPLETE, 04/09/2024, 21:52. FINDINGS: Image quality: Diagnostic. Lower Chest: Bibasilar atelectasis. Heart size is normal. URINARY: Right Kidney: No stones or hydronephrosis. Right Ureter: No hydroureter. No ureteral stones seen. There are a few punctate pelvic stones identified which may correlate with ultrasound findings. Left Kidney: No stones or hydronephrosis. Left Ureter: No hydroureter. Bladder: Normal wall thickness. No stones. ABDOMEN: Liver: No contour-deforming solid mass. Gallbladder: No radiopaque gallstones or wall thickening. Biliary ducts: No biliary dilation. Pancreas: No ductal dilation. Spleen: Size is within normal limits. Adrenal Glands: No adrenal nodules. Stomach and Bowel: Normal colonic caliber, without significant wall thickening. Scattered colonic diverticula without acute inflammation. Postsurgical changes of prior appendectomy. No evidence for small bowel obstruction or associated inflammatory changes. Peritoneum: No abnormal intraperitoneal fluid. No free air. Ventral Wall: There is a fat-containing umbilical hernia without acute inflammation. Abdominal Nodes: No enlarged retroperitoneal or mesenteric lymph nodes. Vessels: Aorta and inferior vena cava are normal in size. PELVIS: Pelvic Organs: Unremarkable. Pelvic structures better visualized on pelvic ultrasound from same day. Pelvic Nodes: Unremarkable. Miscellaneous: No inguinal hernias are seen. Bones: Unremarkable. Visualized osseous structures appear intact without acute fracture or focal destructive lesion. No acute compression fractures of the imaged spine. IMPRESSION: CT abdomen and pelvis without acute abnormalities. Specifically, no evidence for urolithiasis or obstructive uropathy. The previously described possible distal right ureteral stone may correlate with a pelvic calcification or phlebolith. Colonic diverticulosis without acute diverticulitis. Status post appendectomy. Dictated by: Flakito Ferraro M.D. on 04/09/2024 at 23:29 Approved by: Flakito Ferraro M.D. on 04/09/2024 at 23:35
[2024-04-09 23:40] LABS: Appearance Urine UA CLOUDY; Bilirubin Urine UA NEGATIVE (NEGATIVE); Color Urine UA RED; Glucose Urine UA NEGATIVE (Negative); Ketones Urine UA TRACE (NEGATIVE); Leukocyte Esterase Urine UA 1+ (NEGATIVE); Nitrite Urine UA POSITIVE (Negative); Occult Blood Urine UA 3+ (Negative); Protein Urine UA 3+ (Negative)
[2024-04-09 23:45] LABS: Bacteria Urine Few (2-10); RBC Urine 30-100/HPF (0-5/HPF); Urine Volume 10mL (spun); WBC Urine 0-1/HPF (0-5/HPF)
[2024-04-09 23:46] LABS: Culture Indicated Urine Specimen Cultured; Squamous Epithelial Cell Urine 0-1 /HPF (0-5/HPF)
[2024-04-10] VITALS: BP 114/78; PULSE 71; O2SAT 100
== END 2024-04-10 00:14 | disposition home or self-care (01) ==
PROVIDERS: Emergency Provider Emergency Medicine
DX: N93.9 Abnormal uterine and vaginal bleeding, unspecified (principal); R10.2 Pelvic and perineal pain; R42 Dizziness and giddiness; R11.0 Nausea
CPT/HCPCS: 36415; 74176; 76830; 76856; 80053; 81001; 85025; 87077; 87086; 87147; 93975; 96374; 99284; J1885

== ENCOUNTER 2024-09-19 19:27 | Emergency (ER) | payer MEDICARE, OTHER, SELFPAY ==
--- NOTE | 2024-09-19 19:34 | ED.LOWEXIN ---
HPI - Extremity Injury (Lower) General Chief Complaint: Extremity Problem,Nontraumatic Stated Complaint: Left leg swollen in pain Time Seen by Provider: 09/19/24 19:33 History of Present Illness HPI Narrative: Patient is a 39-year-old female no significant past medical history comes into the ED for evaluation of left lower extremity swelling pain, patient started spontaneously about a day ago, no trauma no falls. No recent travel no known sick contacts. Patient states that she does have a family history of clotting disorders, states dad is currently on blood thinners secondary to this. Otherwise denies any other symptoms at this time. Related Data Home Medications ?Medication ?Instructions ?Recorded ?Confirmed albuterol sulfate 90 mcg/actuation 2 puff inhalation Q6H PRN 09/22/23 aerosol inhaler amitriptyline 25 mg tablet 25 mg PO BEDTIME 09/22/23 divalproex 500 mg tablet,delayed 500 mg PO BID 09/22/23 release pantoprazole 40 mg tablet,delayed 40 mg PO DAILY 09/22/23 release prednisone 20 mg tablet 40 mg PO DAILY 09/22/23 Previous Rx's ?Medication ?Instructions ?Recorded cyclobenzaprine 10 mg tablet 10 mg PO BID PRN muscle spasm 1 09/19/24 week #14 tabs Allergies Allergy/AdvReac Type Severity Reaction Status Date / Time acetaminophen (From Percocet) Allergy Verified 09/19/24 19:39 diazepam (From Valium) Allergy Verified 09/19/24 19:39 morphine Allergy Verified 09/19/24 19:39 oxycodone Allergy Verified 09/19/24 19:39 ibuprofen AdvReac Mild Rash Verified 09/19/24 19:39 Review of Systems Review of Systems Narrative: General: Denies fever, chills, weight loss HEENT: Denies headache, eye drainage, eye irritation, head trauma, sore throat, voice change Cardiovascular: Denies any chest pain, palpitations, tachycardia Respiratory: Denies any shortness of breath, cough, wheeze, stridor GI/: Denies any abdominal pain, nausea, vomiting, diarrhea, bright red blood per rectum, melanotic stools, urinary frequency, urinary retention, dysuria, hematuria MSK: Positive left lower extremity swelling Skin: Denies any rashes, lesions, discoloration Neuro: Denies any headache, lightheadedness, dizziness, fainting, weakness Psych: Denies SI/HI Patient History Social History Smoking Status: Former smoker alcohol intake frequency: a few times a week Exam Narrative Exam Narrative: General: Cooperative, well-developed, not in acute distress HEENT: Normocephalic, atraumatic, PERRLA, normal sclera, eyelids normal Neck: Active full range of motion, atraumatic Chest: Normal to inspection, negative crepitus, no overlying erythema ecchymosis Respiratory: Normal respiratory effort, not in acute respiratory distress, clear to auscultation bilaterally negative cough, wheeze, tachypnea, rhonchi, rales Cardiology: Regular rate rhythm negative gallop, murmur, rubs GI/: No tenderness to palpation, soft, non rigid, normal to inspection, exam deferred MSK: Full active range of motion in all 4 extremities, atraumatic, no tenderness to palpation of any bony prominences, bilateral lower extremities neurovascularly intact no overlying erythema ecchymosis gross deformities noted Skin: No rashes or lesions noted Neuro: Alert awake oriented x3, moves all 4 extremities spontaneously, cranial nerves intact, able to answer all questions appropriately follows commands appropriately Psych: Cooperative, negative suicidal or homicidal ideations Initial Vital Signs Initial Vital Signs: Vital Signs Temperature 97.8 F 09/19/24 19:39 Pulse Rate 112 H 09/19/24 19:39 Respiratory Rate 18 09/19/24 19:39 Blood Pressure 143/81 H 09/19/24 19:39 Pulse Oximetry 100 09/19/24 19:39 Oxygen Delivery Method Room Air 09/19/24 19:39 Course Orders Ordered: ED Orders 09/19/24 19:34 [facility] venous low extrem lt Stat 09/19/24 19:44 CBC Auto Diff [Complete Blood Count AUTO DIFF] Stat CMP [Comprehensive Metabolic Panel] Stat PT [Prothrombin Time INR] Stat PTT Partial Thromboplastin Cem Stat Vital Signs Vital signs: Vital Signs - 8 hr 09/19/24 19:39 Temperature 97.8 F Pulse Rate 112 H Respiratory Rate 18 Blood Pressure 143/81 H Pulse Oximetry 100 Oxygen Delivery Method Room Air MDM - Extremity Injury (Lower) Differential Diagnosis Differential diagnosis: Likely other (Lymphedema, DVT, cellulitis, electrolyte abnormality) Lab Data 09/19/24 19:44 09/19/24 19:44 Labs: Lab Results 09/19/24 Range/Units 19:44 WBC 8.7 (4.5-11.0) X10^3/uL RBC 4.33 (4.0-5.2) X10^6/uL Hgb 12.3 (12.0-16.0) g/dL Hct 36.2 (36-46) % MCV 83.7 (80-100) fL MCH 28.4 (26-34) PG MCHC 34.0 (30-36) % RDW 14.1 (11.6-14.8) % Plt Count 212 (150-400) X10^3/uL Neut % (Auto) 61.4 (50-75) % Lymph % (Auto) 31.9 (25-40) % [place] % (Auto) 4.9 (3-14) % Eos % (Auto) 1.5 L (2-4) % Baso % (Auto) 0.3 (0-2) % Neut # (Auto) 5300 (3930-2817) /uL Lymph # (Auto) 2800 (6686-3923) /uL [place] # (Auto) 400 (0-900) /uL Eos # (Auto) 100 (0-450) /uL Baso # (Auto) 0 (0-100) /uL PT 11.3 (9.4-12.5) SECONDS INR 1.0 (0.9-1.3) APTT 31 (25.1-36.5) SECONDS Sodium 138 (137-145) mmol/L Potassium 4.0 (3.4-5.1) mmol/L Chloride 106 (98-107) mmol/L Carbon Dioxide 24 (22-32) mmol/L BUN 14 (7-17) mg/dL Creatinine 0.78 (0.52-1.04) mg/dL Estimated GFR > 60 (>60) mL/min BUN/Creatinine Ratio 17.9 (6-22) Glucose 148 H (70-99) mg/dL Calcium 9.9 (8.4-10.2) mg/dL Total Bilirubin 0.6 (0.2-1.3) mg/dL AST 33 (14-36) IU/L ALT 39 H (<35) IU/L Alkaline Phosphatase 77 (38-126) U/L Total Protein 7.6 (6.3-8.2) g/dL Albumin 4.5 (3.5-5.0) g/dL Globulin 3.1 (1.7-4.1) g/dL Albumin/Globulin Ratio 1.5 (1.0-2.8) Imaging Data US - DVT: Radiologist's Impression: [address] [address] Ultrasound Report Signed Patient: Katt Glass MR#: [id number] : 1985 Acct:[id number] Age/Sex: 39 / F Date of Service: 09/19/24 Loc: ED Accession Number: [id number] Procedure: US periph venous low extrem lt Ordering Provider: Jayson Lema D.O. PROCEDURE: US PERIPH VENOUS LOW EXTREM LT INDICATIONS: swollen and painful TECHNIQUE: Real-time imaging, as well as color and pulse Doppler interrogation, were performed of the lower extremity deep veins from the inguinal ligament to the popliteal fossa, with documentation of the visualized calf veins. COMPARISON: None. FINDINGS: The common femoral, femoral, popliteal are normally compressible, and free of intraluminal thrombus. Color and pulse Doppler demonstrate normal phasic intraluminal flow. There is normal augmentation response to distal compression maneuver. The calf veins are not well visualized secondary to patient body habitus. IMPRESSION: No findings of lower extremity deep venous thrombosis in the visualized veins. MDM Narrative Medical decision making narrative: 39-year-old female without any significant past medical history presenting from the emergency department from home for evaluation of left lower extremity swelling and pain started approximately 1-2 days ago spontaneous no trauma no falls. Patient stating that she is not on any current or previous control, no recent travel, not on any blood thinners, she states that she does have a family history of clotting disorder, states that dad as history of blood clots and is on a blood thinner. Otherwise not complaining of any other symptoms on exam lower extremities are neurovascularly intact no gross deformities, patient had lab work imaging performed here in the emergency department. Lab work unremarkable ultrasound negative for DVT symptoms more likely secondary to MSK, we will send home with symptomatic relief instructed follow up with the primary care in outpatient setting she verbalized understanding of this and agrees to being discharged home with outpatient follow up Discharge Plan Departure Patient Disposition: Home Clinical Impression: Left leg pain Activity Restrictions/Additional Instructions: Please follow up with the primary care doctor Please read the discharge instructions sheet carefully and bring all papers to all doctor follow-up visits, as it may contain information that your doctor may want to see. Disease processes change and evolve, if your symptoms worsen or if you develop any new symptoms that are concerning to you please return for evaluation. Your evaluation today does not show any evidence of any life-threatening/serious illnesses requiring admission to the hospital or surgery. Please follow-up with your doctor for re-evaluation in approximately 1 day. Seek immediate medical attention for any worrisome symptoms. *If you do not have a primary care provider please contact the [facility] Resource line at [phone]. They will ask some questions about your medical history and help get you set up with a doctor in the community. Prescriptions: New cyclobenzaprine 10 mg tablet 10 mg PO BID PRN (Reason: muscle spasm) 7 Days Qty: 14 0RF No Action albuterol sulfate 90 mcg/actuation HFA aerosol inhaler 2 puff inhalation Q6H PRN amitriptyline 25 mg tablet 25 mg PO BEDTIME divalproex 500 mg tablet,delayed release (DR/EC) 500 mg PO BID pantoprazole 40 mg tablet,delayed release (DR/EC) 40 mg PO DAILY prednisone 20 mg tablet 40 mg PO DAILY Referrals: ProviderGabriel [Primary Care Provider, Family Practice] Stand Alone Forms: Patient Portal/API
[2024-09-19 19:39] VITALS: BP 143/81; PULSE 112; RESP 18; TEMP 36.6; O2SAT 100; BMI 36.5
--- NOTE | 2024-09-19 19:47 | PC.NURSE ---
Unknown context; lower leg swelling---worse at left ankle
[2024-09-19 19:51] LABS: Add Manual Diff / Slide Review NO; Basophils Absolute Auto 0 /uL (0-100); Basophils Percent Auto 0.3 % (0-2); Eosinophils Absolute Auto 100 /uL (0-450); Eosinophils Percent Auto 1.5 % (2-4); Hematocrit 36.2 % (36-46); Hemoglobin 12.3 g/dL (12.0-16.0); Lymphocytes Absolute Auto 2800 /uL (1100-4500); Lymphocytes Percent Auto 31.9 % (25-40); Mean Corpuscular Hemoglobin 28.4 PG (26-34); Mean Corpuscular Volume 83.7 fL (80-100); Monocytes Absolute Auto 400 /uL (0-900); Monocytes Percent Auto 4.9 % (3-14); Neutrophils Absolute Auto 5300 /uL (1500-7000); Neutrophils Percent Auto 61.4 % (50-75); Platelet Count 212 X10^3/uL (150-400); Red Blood Cell Count 4.33 X10^6/uL (4.0-5.2); Red Cell Distribution Width 14.1 % (11.6-14.8); White Blood Cell Count 8.7 X10^3/uL (4.5-11.0)
[2024-09-19 19:59] LABS: Prothrombin Time 11.3 SECONDS (9.4-12.5)
[2024-09-19 20:01] LABS: PTT Partial Thromboplastin Tim 31 SECONDS (25.1-36.5)
[2024-09-19 20:05] LABS: Alanine Aminotransferase 39 IU/L (<35); Albumin 4.5 g/dL (3.5-5.0); Albumin Globulin Ratio 1.5 (1.0-2.8); Alkaline Phosphatase 77 U/L (38-126); Aspartate Aminotransferase 33 IU/L (14-36); BUN Creatinine Ratio 17.9 (6-22); Bilirubin Total 0.6 mg/dL (0.2-1.3); Blood Urea Nitrogen 14 mg/dL (7-17); Calcium 9.9 mg/dL (8.4-10.2); Carbon Dioxide 24 mmol/L (22-32); Chloride 106 mmol/L (98-107); Estimated Glomerular Filt Rate > 60 mL/min (>60); Globulin 3.1 g/dL (1.7-4.1); Glucose 148 mg/dL (70-99); HEMOLYSIS 15 (0-50); Sodium 138 mmol/L (137-145); Total Protein 7.6 g/dL (6.3-8.2)
[2024-09-19 20:56] VITALS: BP 117/58; PULSE 73; RESP 16; O2SAT 99
[2024-09-19] MEDS: CYCLOBENZAPRINE 10 MG PREPACK 1 BOTTLE MISC (20:56)
== END 2024-09-19 21:02 | disposition home or self-care (01) ==
PROVIDERS: Emergency Provider Student in an Organized Health Care Education/Training Program
DX: M79.605 Pain in left leg (principal)
CPT/HCPCS: 80053; 85025; 85610; 85730; 93971; 99281; 99284